=== PATIENT | female | born 1975 | race Caucasian/White ===

== ENCOUNTER 2017-02-07 08:54 | Emergency (ER) | payer OTHER ==
[~2017-02-07] VITALS: Ht 165.1 cm; Wt 98.0 kg
[2017-02-07 09:55] LABS: ASPARTATE AMINO TRANSFERASE 14 U/L (15-37); BLOOD UREA NITROGEN 13 mg/dL (7-18)
[2017-02-07 11:16] VITALS: BP 131/92
== END 2017-02-07 11:20 | disposition home or self-care (01) ==
LOC: ED 11:14
DX: N30.00 Acute cystitis without hematuria (principal); R55 Syncope and collapse
CPT/HCPCS: 36415; 71010; 80053; 81001; 84703; 85025; 85379; 87086; 93005